=== PATIENT | female | born 1985 | race Caucasian/White ===

== ENCOUNTER 2019-04-20 09:55 | Emergency (ER) | payer BC ==
--- NOTE | 2019-04-20 11:32 | UC ---
Throat Pain/Nasal Ervin HPI - HPI Summary HPI Summary: 34 yo female presents with sinus pain/pressure/congestion for the last 1.5 weeks. She has been taking an OTC cold/flu medicine with mild relief and at first and thought she was getting better, but symptoms returned and over the last 2-3 days has had a dry cough that is keeping her up at night. She does not smoke. Denies fever, chills, sore throat, SOB, chest pain. - History of Current Complaint Stated Complaint: SINUS ISSUE Time Seen by Provider: 04/20/19 11:31 Hx Obtained From: Patient Hx Last Menstrual Period: 2 weeks Onset/Duration: Gradual Onset Severity: Moderate Pain Intensity: 5 Pain Scale Used: 0-10 Numeric Cough: Nonproductive - Allergies/Home Medications Allergies/Adverse Reactions: Allergies Allergy/AdvReac Type Severity Reaction Status Date / Time amoxicillin AdvReac Severe Vomiting Verified 04/20/19 11:35 Home Medications: Home Medications Control* 04/20/19 [History] PMH/Surg Hx/FS Hx/Imm Hx - Additional Past Medical History Additional PMH: Seasonal allergies - Surgical History Surgical History: Yes Surgery Procedure, Year, and Place: 2007 Carpal tunnel release right [place]. 2010 D& C [place] - Family History Known Family History: Positive: None - Social History Occupation: Employed Full-time Lives: With Family Alcohol Use: Occasionally Alcohol Amount: 1-2 GLASSES/WEEK, NONE CURRENTLY Substance Use Type: None Smoking Status (MU): Never Smoked Tobacco Have You Smoked in the Last Year: No Review of Systems All Other Systems Reviewed And Are Negative: Yes Constitutional: Positive: Negative Skin: Positive: Negative Eyes: Positive: Negative ENT: Positive: Nasal Discharge, Sinus Congestion, Sinus Pain/Tenderness Respiratory: Positive: Cough Cardiovascular: Positive: Negative Gastrointestinal: Positive: Negative Neurovascular: Positive: Negative Neurological: Positive: Negative Psychological: Positive: Negative Physical Exam - Summary Physical Exam Summary: GENERAL: NAD. WDWN. No pain distress. SKIN: No rashes, sores, lesions, or open wounds. HEENT: Head: AT/NC Eyes: EOM intact. Conjunctiva clear without inflammation or discharge. Ears: Hearing grossly normal. TMs intact, no bulging, erythema, or edema. Nose: Nasal mucosa mildly swollen and erythematous without discharge. TTP maxillary and frontal sinus. Positive post nasal drip Throat: Posterior oropharynx without exudates, erythema, or tonsillar enlargement. Uvula midline. NECK: Supple. Nontender. No lymphadenopathy. CHEST: CTAB. No r/r/w. No accessory muscle use. Breathing comfortably and in no distress. CV: RRR. Without m/r/g. Pulses intact. NEURO: Alert. PSYCH: Age appropriate behavior. Triage Information Reviewed: Yes Vital Signs: Vital Signs: Temp Pulse Resp BP Pulse Ox 97.9 F 75 16 128/61 98 04/20/19 11:31 04/20/19 11:31 04/20/19 11:31 04/20/19 11:31 04/20/19 11:31 Vital Signs Reviewed: Yes Throat Pain/Nasal Course/Dx - Course Course Of Treatment: Sinusitis - Differential Dx/Diagnosis Provider Diagnosis: Sinusitis Discharge - Sign-Out/Discharge Documenting (check all that apply): Patient Departure All imaging exams completed and their final reports reviewed: No Studies - Discharge Plan Condition: Stable Disposition: HOME Prescriptions: Azithromycin TAB* [Zithromax TAB (Z-GLENDY) 250 mg #6 tabs] 2 tab PO .TODAY, THEN 1 DAILY #1 glendy Benzonatate CAP* [Tessalon 100 MG CAP*] 100 mg PO TID PRN #21 cap PRN Reason: Cough Codeine Phosphate/Guaifenesin [Guaifen-Codeine 100-10 mg/5 ml] 5 ml PO BEDTIME PRN #35 ml MDD 5mL PRN Reason: Cough Patient Education Materials: Sinusitis (ED), Acute Cough (ED) Referrals: Miladys Bryant MD [Primary Care Provider] - Additional Instructions: If you develop a fever, shortness of breath, chest pain, new or worsening symptoms - please call your PCP or go to the ED immediately. Continue taking your over the counter cold medicine as well as [id number] mucinex to help loosen the congestion - Billing Disposition and Condition Condition: STABLE Disposition: Home
[2019-04-20 11:35] VITALS: BP 128/61
== END 2019-04-20 11:58 | disposition home or self-care (01) ==
LOC: UCEAST 09:55
DX: J32.9 Chronic sinusitis, unspecified (principal); Z88.0 Allergy status to penicillin
CPT/HCPCS: 99212; G0463